=== PATIENT | female | born 2000 | race Caucasian/White ===

== ENCOUNTER 2021-03-02 21:13 | Emergency (ER) | payer BC, OTHER ==
[~2021-03-02] VITALS: Ht 162.6 cm; Wt 87.0 kg
[2021-03-02 22:07] LABS: BASO # 0.1 x10^3/uL (0.0-0.2); BASO % 0 % (0-3); EOS # 0.2 x10^3/uL (0.0-0.7); EOS % 1 % (0-3); HEMOGLOBIN 16.3 g/dL (12.0-15.5); LYMPH # 1.1 x10^3/uL (1.0-4.8); LYMPH % 6 % (24-48); MEAN CORPUSCULAR HEMOGLOBIN 31 pg (25-35); MEAN CORPUSCULAR HGB CONC 34 g/dL (31-37); MEAN CORPUSCULAR VOLUME 90 fL (79-100); MONO # 0.9 x10^3/uL (0.0-1.1); MONO % 5 % (0-9); NEUT # 16.7 x10^3uL (1.8-7.7); NEUT % 88 % (31-73); PLATELET COUNT 353 x10^3/uL (140-400); RED BLOOD COUNT 5.36 x10^6/uL (3.50-5.40)
[2021-03-02] MEDS ORDERED: CONTRAST GIVEN. MC PRN (22:15)
[2021-03-02 22:17] LABS: BILIRUBIN,URINE NEG (NEG); CLARITY,URINE HAZY; COLOR,URINE YELLOW; GLUCOSE,URINE NEG (NEG)
[2021-03-02 22:18] LABS: NITRITE,URINE NEG (NEG); UROBILINOGEN,URINE 0.2 mg/dL (0.2 mg/dL)
[2021-03-02 22:20] LABS: BACTERIA,URINE 0 /HPF (0-FEW)
[2021-03-02 22:21] LABS: SQUAMOUS EPITHELIAL CELL,UR MOD /LPF
[2021-03-02 22:25] LABS: CALCIUM 9.7 mg/dL (8.5-10.1); CREATININE 0.8 mg/dL (0.6-1.0); GFR 90.5; POTASSIUM 3.7 mmol/L (3.5-5.1)
[2021-03-02] MEDS ORDERED: IV RINGERS SOLUTION,LACTATED 1,000 ML IV ONE (22:30)
[2021-03-02] MEDS ORDERED: MORPHINE SULFATE 4 MG/ML DISP.SYRIN. IV ONE (22:30)
[2021-03-02] MEDS ORDERED: IOHEXOL 300 MG/ML 75 ML VIAL. IV ONE (22:30)
[2021-03-02] MEDS ORDERED: ONDANSETRON PF 4 MG/2 ML VIAL. IVP ONE (22:30)
[2021-03-02 22:31] LABS: ALBUMIN 4.1 g/dL (3.4-5.0); ALBUMIN/GLOBULIN RATIO 0.9 (1.0-1.7); TOTAL BILIRUBIN 0.6 mg/dL (0.2-1.0); TOTAL PROTEIN 8.7 g/dL (6.4-8.2)
--- NOTE | 2021-03-02 23:20 | RAD ---
Exam Date: 03/02/2021 10:[address] ABDOMEN+PELVIS W Indication: Reason: epigastric pain, OMNI 300, 75ml / Spl. Instructions: / History: TECHNIQUE: CT examination of the abdomen and pelvis was performed following the administration of no nionic intravenous contrast. One or more of the following dose reduction techniques were utilized: *Automated exposure control (AEC) *Adjustment of mA and/or kV according to patient size *Use of iterative reconstruction technique *CT scan done according to ALARA, or ALARA/IMAGE GENTLY FINDINGS: The visualized lung bases are clear. The liver, gallbladder, spleen, pancreas, adrenal glands and kidneys are normal. Urinary bladder is normal in appearance. There is no bowel obstruction or inflammation. Liquid stool is seen throughout the colon. The appendi x is normal. No significant atherosclerotic calcifications are seen. No lymphadenopathy or ascites is seen. Osseous structures are intact. IMPRESSION: Liquid stool seen throughout the colon suggesting diarrhea. No bowel obstruction or inflammation. Rem ainder the examination is within normal limits. Electronically signed by: Rafa Hendricks MD (03/02/2021 11:18 PM) [facility]
[2021-03-02 23:29] LABS: % BANDS 9 % (0-9); % EOS 1 % (0-5); % LYMPHS 6 % (24-48); % MONOS 3 % (0-10); % SEGS 81 % (35-66); PLT ESTIMATE ADEQUATE (ADEQUATE)
--- NOTE | 2021-03-02 23:54 | PHYS DOC ---
Adult General Chief Complaint Chief Complaint: NAUSEA/VOMITING/DIARRHEA HPI HPI Patient is an otherwise healthy 20-year-old female presents with a days worth of nonbloody nonbilious nausea, vomiting and watery diarrhea. States that another family member has similar symptoms. Denies any recent travel, known ill contacts other than that, fevers, chest pain, shortness of breath, dysuria, hematuria or blood in the stool. Review of Systems Review of Systems Review of systems otherwise unremarkable except noted in HPI Current Medications Current Medications Current Medications Medications (Trade) Dose Ordered Sig/Luli Start Time Stop Time Status Last Admin Dose Admin Info (Do NOT chart on this entry -- for MONITORING) 1 each PRN DAILY PRN 03/02/21 22:15 03/04/21 22:14 Iohexol (Omnipaque 300 Mg/ml) 75 ml 1X ONCE 03/02/21 22:30 03/02/21 22:31 DC 03/02/21 22:34 75 ML Lactated Ringer's 1,000 ml @ 1,000 mls/hr 1X ONCE 03/02/21 22:30 03/02/21 23:29 DC 03/02/21 22:23 1,000 MLS/HR Morphine Sulfate (Morphine 4mg Syringe) 4 mg 1X ONCE 03/02/21 22:30 03/02/21 22:31 DC 03/02/21 22:24 4 MG Ondansetron HCl (Zofran) 4 mg 1X ONCE 03/02/21 22:30 03/02/21 22:31 DC 03/02/21 22:24 4 MG Allergies Allergies Allergies Coded Allergies Type Severity Reaction Last Updated Verified No Known Drug Allergies 03/02/21 No Physical Exam Physical Exam Constitutional: Well developed, well nourished, no acute distress, non-toxic appearance. [] HENT: Normocephalic, atraumatic, bilateral external ears normal, oropharynx moist, no oral exudates, nose normal. [] Eyes: conjunctiva normal, no discharge. [] Neck: Normal range of motion, no tenderness, supple, no stridor. [] Cardiovascular: Sinus tachycardia Lungs & Thorax: Bilateral breath sounds clear to auscultation [] Abdomen: Bowel sounds normal, soft, no tenderness, no masses, no pulsatile masses. [] Skin: Warm, dry, no erythema, no rash. [] Back: No tenderness, no CVA tenderness. [] Extremities: No tenderness, no cyanosis, no clubbing, ROM intact, no edema. [] Neurologic: Alert and oriented X 3, normal motor function, normal sensory function, no focal deficits noted. [] Psychologic: Affect normal, judgement normal, mood normal. [] Current Patient Data Vital Signs Vital Signs Date Time Temp Pulse Resp B/P (MAP) Pulse Ox O2 Delivery O2 Flow Rate FiO2 03/02/21 22:24 18 99 Lab Results Laboratory Tests Test 03/02/21 21:25 03/02/21 21:45 03/02/21 21:55 Urine Collection Type Unknown Urine Color Yellow Urine Clarity Hazy Urine pH 7.0 Urine Specific [place] 1.025 Urine Protein Trace (NEG-TRACE) Urine Glucose (UA) Neg mg/dL (NEG) Urine Ketones (Stick) Neg mg/dL (NEG) Urine Blood Mod (NEG) Urine Nitrite Neg (NEG) Urine Bilirubin Neg (NEG) Urine Urobilinogen Dipstick 0.2 mg/dL (0.2 mg/dL) Urine Leukocyte Esterase Neg (NEG) Urine RBC 3-5 /HPF (0-2) Urine WBC 1-4 /HPF (0-4) Urine Squamous Epithelial Cells Mod /LPF Urine Bacteria 0 /HPF (0-FEW) Urine Mucus Slight /LPF White Blood Count 19.0 x10^3/uL (4.0-11.0) H Red Blood Count 5.36 x10^6/uL (3.50-5.40) Hemoglobin 16.3 g/dL (12.0-15.5) H Hematocrit 48.0 % (36.0-47.0) H Mean Corpuscular Volume 90 fL (79-100) Mean Corpuscular Hemoglobin 31 pg (25-35) Mean Corpuscular Hemoglobin Concent 34 g/dL (31-37) Red Cell Distribution Width 13.0 % (11.5-14.5) Platelet Count 353 x10^3/uL (140-400) Neutrophils (%) (Auto) 88 % (31-73) H Lymphocytes (%) (Auto) 6 % (24-48) L Monocytes (%) (Auto) 5 % (0-9) Eosinophils (%) (Auto) 1 % (0-3) Basophils (%) (Auto) 0 % (0-3) Neutrophils # (Auto) 16.7 x10^3uL (1.8-7.7) H Lymphocytes # (Auto) 1.1 x10^3/uL (1.0-4.8) Monocytes # (Auto) 0.9 x10^3/uL (0.0-1.1) Eosinophils # (Auto) 0.2 x10^3/uL (0.0-0.7) Basophils # (Auto) 0.1 x10^3/uL (0.0-0.2) Segmented Neutrophils % 81 % (35-66) H Band Neutrophils % 9 % (0-9) Lymphocytes % 6 % (24-48) L Monocytes % 3 % (0-10) Eosinophils % 1 % (0-5) Basophils % % (0-3) Platelet Estimate Adequate (ADEQUATE) Sodium Level 139 mmol/L (136-145) Potassium Level 3.7 mmol/L (3.5-5.1) Chloride Level 103 mmol/L (98-107) Carbon Dioxide Level 23 mmol/L (21-32) Anion Gap 13 (6-14) Blood Urea Nitrogen 12 mg/dL (7-20) Creatinine 0.8 mg/dL (0.6-1.0) Estimated GFR (Cockcroft-Gault) 90.5 BUN/Creatinine Ratio 15 (6-20) Glucose Level 119 mg/dL (70-99) H Calcium Level 9.7 mg/dL (8.5-10.1) Total Bilirubin 0.6 mg/dL (0.2-1.0) Aspartate Amino Transferase (AST) 12 U/L (15-37) L Alanine Aminotransferase (ALT) 22 U/L (14-59) Alkaline Phosphatase 71 U/L (46-116) Total Protein 8.7 g/dL (6.4-8.2) H Albumin 4.1 g/dL (3.4-5.0) Albumin/Globulin Ratio 0.9 (1.0-1.7) L Lipase 51 U/L (73-393) L POC Urine HCG, Qualitative hcg negative (Negative) EKG EKG [] Radiology/Procedures Radiology/Procedures []am Date: 03/02/2021 10:[address] ABDOMEN+PELVIS W Indication: Reason: epigastric pain, OMNI 300, 75ml / Spl. Instructions: / History: TECHNIQUE: CT examination of the abdomen and pelvis was performed following the administration of nonionic intravenous contrast. One or more of the following dose reduction techniques were utilized: *Automated exposure control (AEC) *Adjustment of mA and/or kV according to patient size *Use of iterative reconstruction technique *CT scan done according to ALARA, or ALARA/IMAGE GENTLY FINDINGS: The visualized lung bases are clear. The liver, gallbladder, spleen, pancreas, adrenal glands and kidneys are normal. Urinary bladder is normal in appearance. There is no bowel obstruction or inflammation. Liquid stool is seen throughout the colon. The appendix is normal. No significant atherosclerotic calcifications are seen. No lymphadenopathy or ascites is seen. Osseous structures are intact. IMPRESSION: Liquid stool seen throughout the colon suggesting diarrhea. No bowel obstruction or inflammation. Remainder the examination is within normal limits. Electronically signed by: Rafa Hendricks MD (03/02/2021 11:18 PM) [facility] Heart Score C/O Chest Pain: No Risk Factors: Risk Factors: DM, Current or recent (<one month) smoker, HTN, HLP, family history of CAD, obesity. Risk Scores: Risk Factors: DM, Current or recent (<one month) smoker, HTN, HLP, family history of CAD, obesity. Course & Med Decision Making Course & Med Decision Making Patient is a 20-year-old female who presents with a day of nausea, vomiting and diarrhea All signs notable for sinus tachycardia. Physical exam noted above. Patient placed on the monitor with IV access established and IV fluid given. Given morphine for pain and Zofran for nausea. Laboratory analysis notable for leukocytosis. CT notable for lots of liquid stool seen throughout the colon suggesting diarrhea with no obstruction or inflammation. Discussed all findings with patient and advised on light clear diet over the nex t couple of days including addition of antibiotics, pain medicine and nausea medicine. Given work note. Advised to follow-up tomorrow with primary care physician. Gave strict return precautions to the emergency department. Family grateful, verbalized un derstanding and agreed with plan of discharge. [] Dragon Disclaimer Dragon Disclaimer This electronic medical record was generated, in whole or in part, using a voice recognition dictation system. Departure Departure: Impression: Primary Impression: Nausea & vomiting Additional Impression: Diarrhea Disposition: HOME / SELF CARE / HOMELESS Condition: GOOD Referrals: PCP,CHARLENE (PCP) BRITTANY CROWE MD Patient Instructions: Diarrhea, [id number], Diet for Diarrhea, Adult, Nausea and Vomiting Additional Instructions: Please read all the attached information very carefully. Please adjust your diet as discussed over the next couple of days to allow for bowel rest. Please take your antibiotics as prescribed. Please take your prescription medications as prescribed. Follow-up tomorrow with your primary care physician to discuss ED visit and set up a follow-up visit. Please come back to the ED with new or concerning symptoms as discussed. Scripts Ondansetron Hcl (ZOFRAN) 4 Mg Tablet 1 TAB PO PRN Q6HRS PRN for NAUSEA for 3 Days, #12 TAB Prov: GAGE MARTINO MD 03/03/21 Hydrocodone Bit/Acetaminophen (HYDROCODONE-APAP 5-325 ) 1 Each Tablet 1 TAB PO PRN Q6HRS PRN for ab pain for 3 Days, #12 TAB 0 Refills Prov: GAGE MARTINO MD 03/03/21 Amoxicillin/Potassium Clav (AUGMENTIN 875-125 TABLET) 1 Each Tablet 1 TAB PO BID for enteritis for 7 Days, #14 TAB 0 Refills Prov: GAGE MARTINO MD 03/03/21 Problem Qualifiers GAGE MARTINO MD Mar 02, 2021 23:54
[2021-03-03] MEDS ORDERED: ONDA4TAB7 PO (00:24)
[2021-03-03] MEDS ORDERED: HYDR-2155 PO (00:24)
[2021-03-03] MEDS ORDERED: AMOX1TAB61 PO (00:24)
[2021-03-03 00:30] VITALS: BP 134/86
[2021-03-03] MEDS ORDERED: AMOXICILLIN/K CLAV 875/125MG TABLET. PO ONE (00:30)
[2021-03-03] MEDS ORDERED: HYDROcodone/APAP 5/325MG 1 TAB TABLET PO ONE (00:30)
[2021-03-03] MEDS ORDERED: ONDANSETRON ODT 4 MG TAB.RAPDIS PO ONE (00:30)
== END 2021-03-03 00:30 | disposition home or self-care (01) ==
LOC: ER 21:13
DX: R11.2 Nausea with vomiting, unspecified (principal); R19.7 Diarrhea, unspecified
CPT/HCPCS: 36415; 74177; 80053; 81001; 81025; 83690; 85007; 85025; 96361; 96374; 96375; 99285; J2270; J2405; J7120; Q0162; Q9967